=== PATIENT | male | born 1980 | race Caucasian/White ===

== ENCOUNTER 2024-09-28 10:18 | Emergency (ER) | payer MEDICAID, SELFPAY ==
[2024-09-28 10:25] VITALS: BP 131/64; PULSE 81; RESP 14; TEMP 36.7; O2SAT 99; BMI 22.7
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
[2024-09-28] MEDS: TET/DIPHTH/PERT-ADULT 0.5ML SYRINGE 0.5 ML IM (10:57)
[2024-09-28] MEDS: CLINDAMYCIN 150MG CAPSULE 450 MG PO (10:57)
[2024-09-28 11:06] VITALS: BP 127/66; PULSE 73; RESP 18; TEMP 36.6
== END 2024-09-28 11:06 | disposition home or self-care (01) ==
PROVIDERS: Emergency Provider Emergency Medicine
DX: Z00.8 Encounter for other general examination (principal); M79.641 Pain in right hand; S61.411A Laceration without foreign body of right hand, initial encounter; Z23 Encounter for immunization; Y04.0XXA Assault by unarmed brawl or fight, initial encounter; Y93.89 Activity, other specified; Y92.9 Unspecified place or not applicable
CPT/HCPCS: 90471; 90715; 99282; 99283